=== PATIENT | male | born 1945 | race Caucasian/White ===

== ENCOUNTER 2021-07-05 12:44 | Emergency (ER) | payer MEDICARE ==
[2021-07-05] MEDS ORDERED: Diphtheria,Pertussis(Acell),Tetanus Vaccine 0.5 ML Syringe IM ONE (13:34)
--- NOTE | 2021-07-05 13:35 | EDM.PDOC ---
ED HPI GENERAL MEDICAL PROBLEM - General Chief Complaint: Laceration Stated Complaint: FALL Time Seen by Provider: 07/05/21 13:31 Source of Information: Reports: Patient, Family History Limitations: Reports: No Limitations - History of Present Illness INITIAL COMMENTS - FREE TEXT/NARRATIVE: pt was mowing his lawn and was going down a slight incline. He fell and hit his head and left side on the side walk. He was not knocked out. He was dizzy and having trouble thinking straight for a brief period. Onset: Today, Sudden Duration: Hour(s): Location: Reports: Head, Back Associated Symptoms: Reports: Chest Pain, Other (pt hit the left cva area.) Left Lower Back Pain Score (Numeric/FACES): 5 - Related Data Allergies Allergy/AdvReac Type Severity Reaction Status Date / Time No Known Allergies Allergy Verified 07/05/21 13:03 Home Meds: Home Meds Donepezil [Aricept] 5 mg PO BEDTIME 07/05/21 [History] Past Medical History HEENT History: Reports: Cataract, Hard of Hearing Genitourinary History: Reports: BPH Musculoskeletal History: Reports: Fracture Psychiatric History: Reports: Dementia - Past Surgical History HEENT Surgical History: Reports: Cataract Surgery Musculoskeletal Surgical History: Reports: Carpal Tunnel Social & Family History - Tobacco Use Tobacco Use Status *Q: Never Tobacco User - Caffeine Use Caffeine Use: Reports: Coffee - Recreational Drug Use Recreational Drug Use: No ED ROS GENERAL - Review of Systems Review Of Systems: See Below Constitutional: Reports: No Symptoms HEENT: Reports: No Symptoms Respiratory: Reports: No Symptoms Cardiovascular: Reports: No Symptoms Endocrine: Reports: No Symptoms GI/Abdominal: Reports: Other (pain in the left cva area. He has some swelling in the area. ) : Reports: No Symptoms Musculoskeletal: Reports: No Symptoms Skin: Reports: No Symptoms Neurological: Reports: Dizziness, Other (just lasted for 1 min) Psychiatric: Reports: No Symptoms ED EXAM, SKIN/RASH Exam: See Below Text/Narrative:: pt arrived after falling while he was mowing. He was going down a incline and he hit the back of his head and his left cva area on the cement. Exam Limited By: No Limitations General Appearance: Alert, Anxious, Mild Distress Ears: Normal TMs Nose: Normal Inspection Throat/Mouth: Normal Inspection Head: Atraumatic Neck: Normal Inspection Respiratory/Chest: No Respiratory Distress Cardiovascular: Regular Rate, Rhythm, Bradycardia GI/Abdominal: Soft, Other ( tender in the left cva area. ) (Male) Exam: Deferred Rectal (Males) Exam: Deferred Back Exam: CVA Tenderness (L) Extremities: Other ( abrasion on the left upper arm. ) Neurological: Alert, Oriented, Normal Cognition, Other (pt has an abrasion on the occipital area ) Psychiatric: Anxious Course - Vital Signs Last Recorded V/S: Last Vital Signs Temp 36.6 C 07/05/21 13:04 Pulse 68 07/05/21 13:04 Resp 16 07/05/21 13:04 BP 124/83 07/05/21 13:04 Pulse Ox 96 07/05/21 13:04 Orthostatic Blood Pressure [ 110/65 Standing] Orthostatic Blood Pressure [ 117/62 Sitting] Orthostatic Blood Pressure [ 127/74 Supine] - Orders/Labs/Meds Labs: Laboratory Tests 07/05/21 07/05/21 07/05/21 Range/Units 13:34 13:34 15:33 WBC 8.3 (4.5-11.0) K/uL RBC 4.63 (4.30-5.90) M/uL Hgb 13.9 (12.0-15.0) g/dL Hct 40.7 (40.0-54.0) % MCV 88 (80-98) fL MCH 30 (27-31) pg MCHC 34 (32-36) % Plt Count 220 (150-400) K/uL Neut % (Auto) 77.1 H (36-66) % Lymph % (Auto) 12.7 L (24-44) % [place] % (Auto) 7.2 H (2-6) % Eos % (Auto) 2.4 (2-4) % Baso % (Auto) 0.6 (0-1) % Sodium 135 L (140-148) mmol/L Potassium 4.6 (3.6-5.2) mmol/L Chloride 100 (100-108) mmol/L Carbon Dioxide 29 (21-32) mmol/L Anion Gap 10.6 (5.0-14.0) mmol/L BUN 20 H (7-18) mg/dL Creatinine 1.1 (0.8-1.3) mg/dL Est Cr Clr Drug Dosing 66.15 mL/min Estimated GFR (MDRD) > 60 (>60) Glucose 95 (74-106) mg/dL Calcium 8.7 (8.5-10.1) mg/dL Total Bilirubin 0.5 (0.2-1.0) mg/dL AST 19 (15-37) U/L ALT 20 (12-78) U/L Alkaline Phosphatase 44 L (46-116) U/L Total Protein 6.6 (6.4-8.2) g/dL Albumin 3.8 (3.4-5.0) g/dL Globulin 2.8 (2.3-3.5) g/dL Albumin/Globulin Ratio 1.4 (1.2-2.2) Urine Color Yellow (YELLOW) Urine Appearance Clear (CLEAR) Urine pH 6.5 (5.0-8.0) Ur Specific [place] 1.025 (1.008-1.030) Urine Protein Negative (NEGATIVE) mg/dL Urine Glucose (UA) Negative (NEGATIVE) mg/dL Urine Ketones Negative (NEGATIVE) mg/dL Urine Occult Blood Negative (NEGATIVE) Urine Nitrite Negative (NEGATIVE) Urine Bilirubin Negative (NEGATIVE) Urine Urobilinogen 0.2 (0.2-1.0) EU/dL Ur Leukocyte Esterase Negative (NEGATIVE) Urine RBC 0-5 (0-5) Urine WBC 0-5 (0-5) Ur Epithelial Cells Occasional Amorphous Sediment Occasional Urine Bacteria Occasional Urine Mucus Few Urine Other See note Meds: Medications Discontinued Medications Generic Name Dose Route Start Last Admin Trade Name Freq PRN Reason Stop Dose Admin Bacitracin 1 dose 07/05/21 13:36 07/05/21 14:49 Bacitracin Oint 1 Gm U/D Packet TOP 07/05/21 13:37 1 dose ONETIME ONE Administration Diphtheria/Tetanus/Acell Pertussis 0.5 ml 07/05/21 13:34 07/05/21 13:54 Diphtheria,Pertussis(Acell),Tetanus Vaccine 0.5 Ml Syringe IM 07/05/21 13:35 0.5 ml .ONCE ONE Administration - Re-Assessments/Exams Free Text/Narrative Re-Assessment/Exam: 07/05/21 14:59 pt had a neg cat scan of the head. His chest xray was clear, no visable rib injury. He had normal labs. He had orthostatics don and no major changes. He definitely has a sig bruise on the left cva area. 07/05/21 15:01 pt was given a tdap A Ua will be obtained because of the bruising in left cva area. . 07/05/21 15:04 07/05/21 15:51 Departure - Departure Time of Disposition: 16:20 Disposition: Home, Self-Care 01 Condition: Fair Clinical Impression: Contusion of left side of back, Abrasion of left arm, Abrasion head - Discharge Information Instructions: Abrasion, Contusion Referrals: PCP,None [Primary Care Provider] - Forms: ED Department Discharge Care Plan Goals: tylenol; and motrin for pain, cool pack to left cva area, apply bacatracin to left arm and scalp. Leave dressing on the head until tomorrow. Sepsis Event Note (ED) - Evaluation Sepsis Screening Result: No Definite Risk
[2021-07-05] MEDS ORDERED: Bacitracin Oint 1 GM U/D Packet TOP ONE (13:36)
--- NOTE | 2021-07-05 14:32 | CRLCR ---
For Patients: As a result of the Cures Act, medical imaging exams and procedure reports are released immediately into your electronic medical record. You may view this report before your referring provider. If you have questions, please contact your health care provider. Indication: Left chest contusion. Technique: Chest 2 views. Comparison: None. Findings: Cardiovascular and mediastinum: Heart size and vasculature are normal in caliber and appearance. Lungs and pleural spaces: Lungs are clear. No sign of infiltrate or mass. No sign of pleural effusion. No pneumothorax. Bones and soft tissues: No significant findings. Impression: No acute or significant findings. Dictated by Ziggy Patel MD @ 07/05/2021 2:31:29 PM (Electronically Signed)
--- NOTE | 2021-07-05 14:54 | CRLCT ---
For Patients: As a result of the Century Cures Act, medical imaging exams and procedure reports are released immediately into your electronic medical record. You may view this report before your referring provider. If you have questions, please contact your health care provider. INDICATION: Trauma to back of head TECHNIQUE: CT head without contrast. COMPARISON: None FINDINGS: CSF spaces: Within normal limits for age. Brain parenchyma: The andrade-white differentiation is normal. No sign of mass, hemorrhage, or midline shift. Skull base and calvarium: The visualized paranasal sinuses and mastoid air cells demonstrate no acute or significant findings. The visualized orbits are grossly unremarkable. No skull fractures. Left posterior parietal scalp hematoma. IMPRESSION: Left posterior parietal scalp hematoma with no associated fractures or evidence of acute intracranial trauma. Dictated by Joey Zuniga MD @ 07/05/2021 2:52:11 PM Please note that all CT scans at this facility use dose modulation, iterative reconstruction, and/or weight-based dosing when appropriate to reduce radiation dose to as low as reasonably achievable. Dictated by: Joey Zuniga MD @ 07/05/2021 14:53:15 (Electronically Signed)
== END 2021-07-05 16:20 | disposition home or self-care (01) ==
LOC: JP.ED 12:44
DX: S30.0XXA Contusion of lower back and pelvis, initial encounter (principal); S40.812A Abrasion of left upper arm, initial encounter; S00.01XA Abrasion of scalp, initial encounter; F03.90 Unspecified dementia, unspecified severity, without behavioral disturbance, psychotic disturbance, mood disturbance, and anxiety; Z23 Encounter for immunization; Z79.899 Other long term (current) drug therapy; W10.2XXA Fall (on)(from) incline, initial encounter; Y92.480 Sidewalk as the place of occurrence of the external cause
CPT/HCPCS: 36415; 70450; 71046; 80053; 81001; 85025; 90471; 90715; 99284-25